=== PATIENT | female | born 1975 | race African-American/Black ===

== ENCOUNTER 2018-01-13 18:54 | Inpatient (IN) | payer SELFPAY, MEDICAID ==
[2018-01-13 20:05] LABS: ADD MAN DIFF? NO
[2018-01-13 20:08] LABS: BASO # 0.1 x10^3/uL (0.0-0.2); BASO % 1 % (0-3); EOS # 0.3 x10^3/uL (0.0-0.7); EOS % 4 % (0-3); HEMATOCRIT 37.5 % (36.0-47.0); HEMOGLOBIN 12.8 g/dL (12.0-15.5); LYMPH # 2.6 x10^3/uL (1.0-4.8); LYMPH % 27 % (24-48); MEAN CORPUSCULAR HEMOGLOBIN 31 pg (25-35); MEAN CORPUSCULAR HGB CONC 34 g/dL (31-37); MEAN CORPUSCULAR VOLUME 91 fL (79-100); MONO # 0.3 x10^3/uL (0.0-1.1); MONO % 4 % (0-9); NEUT # 6.3 x10^3uL (1.8-7.7); NEUT % 65 % (31-73); PLATELET COUNT 287 x10^3/uL (140-400); RED BLOOD COUNT 4.12 x10^6/uL (3.50-5.40); RED CELL DISTRIBUTION WIDTH 13.2 % (11.5-14.5); WHITE BLOOD COUNT 9.7 x10^3/uL (4.0-11.0)
[2018-01-13 20:16] LABS: PROTHROMBIN TIME PATIENT 12.4 SEC (11.7-14.0)
[2018-01-13] MEDS: hydrALAZINE 20 MG/ML VIAL. IVP ×2 (20:20→21:46)
[2018-01-13 20:29] LABS: ANION GAP 8 (6-14); BLOOD UREA NITROGEN 8 mg/dL (7-20); CARBON DIOXIDE 27 mmol/L (21-32); CHLORIDE 104 mmol/L (98-107); GFR 73.2; GLUCOSE 98 mg/dL (70-99); SODIUM 139 mmol/L (136-145)
[2018-01-13 20:36] LABS: ALBUMIN 3.9 g/dL (3.4-5.0); ALK PHOS 96 U/L (46-116); ALT (SGPT) 21 U/L (14-59); AST (SGOT) 16 U/L (15-37); DIRECT BILIRUBIN 0.1 mg/dL (0.0-0.2); LIPASE 196 U/L (73-393); MAGNESIUM 2.1 mg/dL (1.8-2.4); TOTAL BILIRUBIN 0.4 mg/dL (0.2-1.0); TOTAL PROTEIN 8.4 g/dL (6.4-8.2)
[2018-01-13 20:36] LABS: TROPONINI 0.017 ng/mL (0.000-0.055)
[2018-01-13 20:43] LABS: NT-PRO BNP 196 pg/mL (0-124)
[2018-01-13 20:43] LABS: CKMB MASS < 0.5 ng/mL (0.0-3.6); CREATINE KINASE 185 U/L (26-192)
[2018-01-13] MEDS: fentaNYL PF VIAL 100 MCG/2 ML VIAL IV ×2 (20:46→21:47)
[2018-01-13 21:28] LABS: BILIRUBIN,URINE NEGATIVE (NEG); COLOR,URINE YELLOW; GLUCOSE,URINE NEGATIVE (NEG); NITRITE,URINE NEGATIVE (NEG); PH,URINE 7.5; PROTEIN,URINE NEGATIVE (NEG-TRACE); UROBILINOGEN,URINE 0.2 mg/dL (0.2 mg/dL)
[2018-01-13 21:35] LABS: AMPHETAMINE/METHAMPHETAMINE NEG (NEG); BACTERIA,URINE 0 /HPF (0-FEW); BARBITURATES NEG (NEG); BENZODIAZEPINES NEG (NEG); CANNABINOIDS POS (NEG); CLARITY,URINE CLEAR; COCAINE NEG (NEG); ETHANOL, URINE NEG (NEG); METHADONE NEG (NEG); OPIATES NEG (NEG); PHENCYCLIDINE NEG (NEG); RBC,URINE OCC /HPF (0-2); SQUAMOUS EPITHELIAL CELL,UR MOD /LPF; WBC,URINE OCC /HPF (0-4)
[2018-01-13] MEDS: POTASSIUM CHLORIDE 20 MEQ TABLET.ER. PO (21:43)
[2018-01-13] MEDS: NITROGLYCERIN SUBLINGUAL 0.4 MG BOTTLE OF 25. SL (22:24)
[2018-01-13] MEDS: ASPIRIN 325 MG TABLET PO (23:45)
[2018-01-14] MEDS: ASPIRIN CHEWABLE 81 MG TABLET. PO (00:06)
[2018-01-14] MEDS: fentaNYL PF VIAL 100 MCG/2 ML VIAL IV ×7 (00:06→09:46)
[2018-01-14] MEDS: PROMETHAZINE 12.5 MG in IV NORMAL SALINE 50ML 50 ML IV ×2 (00:07→13:49)
[2018-01-14] MEDS: ZOLPIDEM 5 MG TABLET. PO ×4 (01:09→23:10)
[2018-01-14 02:25] LABS: TROPONINI 0.064 ng/mL (0.000-0.055)
[2018-01-14] MEDS ORDERED: CONTRAST GIVEN MC (04:45)
[2018-01-14] MEDS: IOHEXOL 300 MG/ML 100ML VIAL. IV (05:00)
[2018-01-14 06:01] LABS: ADD MAN DIFF? NO
[2018-01-14 06:21] LABS: BASO % 1 % (0-3); EOS # 0.1 x10^3/uL (0.0-0.7); EOS % 1 % (0-3); HEMATOCRIT 38.5 % (36.0-47.0); HEMOGLOBIN 13.2 g/dL (12.0-15.5); LYMPH # 1.8 x10^3/uL (1.0-4.8); LYMPH % 18 % (24-48); MEAN CORPUSCULAR HEMOGLOBIN 31 pg (25-35); MEAN CORPUSCULAR HGB CONC 34 g/dL (31-37); MEAN CORPUSCULAR VOLUME 91 fL (79-100); MONO # 0.2 x10^3/uL (0.0-1.1); MONO % 3 % (0-9); NEUT # 7.7 x10^3uL (1.8-7.7); NEUT % 78 % (31-73); PLATELET COUNT 273 x10^3/uL (140-400); RED BLOOD COUNT 4.24 x10^6/uL (3.50-5.40); RED CELL DISTRIBUTION WIDTH 13.3 % (11.5-14.5); WHITE BLOOD COUNT 9.9 x10^3/uL (4.0-11.0)
[2018-01-14 06:34] LABS: ANION GAP 8 (6-14); BLOOD UREA NITROGEN 8 mg/dL (7-20); CALCIUM 10.2 mg/dL (8.5-10.1); CARBON DIOXIDE 29 mmol/L (21-32); CHLORIDE 104 mmol/L (98-107); GFR 73.2; GLUCOSE 113 mg/dL (70-99); POTASSIUM 3.3 mmol/L (3.5-5.1); SODIUM 141 mmol/L (136-145)
[2018-01-14 06:57] LABS: TROPONINI 0.093 ng/mL (0.000-0.055)
[2018-01-14 08:12] LABS: POC GLUCOSE 99 mg/dL (70-99)
[2018-01-14] MEDS ORDERED: LABETALOL 20 MG/4 ML DISP.SYRIN. IVP (08:15)
[2018-01-14] MEDS: CARVEDILOL 12.5 MG TABLET. PO ×2 (08:54→17:42)
[2018-01-14] MEDS ORDERED: LIDOCAINE WITH 8.4% SOD BICARB 3 ML DISP.SYRIN. (09:07)
[2018-01-14] MEDS: amLODIPine BESYLATE 10 MG TABLET PO (09:45)
[2018-01-14] MEDS: POTASSIUM CHLORIDE 20 MEQ TABLET.ER. PO ×2 (10:00→13:00)
[2018-01-14 10:02] LABS: CHOLESTEROL 250 mg/dL (0-200); HDLC 56 mg/dL (40-60); LDLC 174 mg/dL (0-100); NON-HDL CHOLESTEROL 194 mg/dL (0-129); TRIGLYCERIDES 101 mg/dL (0-150); VLDLC 20 mg/dL (0-40)
[2018-01-14 10:06] LABS: CHOLESTEROL/HDL RATIO 4.5
[2018-01-14 10:11] LABS: THYROID STIM HORMONE (TSH) 1.877 uIU/mL (0.358-3.74)
[2018-01-14] MEDS: LORazepam 1 MG TABLET PO (10:35)
[2018-01-14] MEDS: LIDOCAINE WITH 8.4% SOD BICARB 3 ML DISP.SYRIN. INJ (10:45)
[2018-01-14] MEDS ORDERED: LORazepam 1 MG TABLET PO (11:30)
[2018-01-14] MEDS ORDERED: BUTORPHANOL 2 MG/ML VIAL. IV (11:30)
[2018-01-14] MEDS: BUTORPHANOL 2 MG/ML VIAL. IV ×3 (11:32→23:11)
[2018-01-14] MEDS: FLUoxetine HCL 20 MG CAPSULE PO (13:00)
[2018-01-14] MEDS: hydrALAZINE 20 MG/ML VIAL. IVP (13:01)
[2018-01-14] MEDS: oxyCODONE/APAP 5/325 1 TAB TABLET PO (14:43)
[2018-01-14] MEDS: SPIRONOLACTONE 25 MG TABLET PO (14:45)
[2018-01-14] MEDS: ATORVASTATIN CALCIUM 40 MG TABLET. PO (21:51)
[2018-01-15] MEDS: oxyCODONE/APAP 5/325 1 TAB TABLET PO ×2 (03:43→08:36)
[2018-01-15] MEDS: BUTORPHANOL 2 MG/ML VIAL. IV ×2 (05:26→12:08)
[2018-01-15 05:38] LABS: ADD MAN DIFF? NO
[2018-01-15 05:40] LABS: BASO # 0.1 x10^3/uL (0.0-0.2); BASO % 1 % (0-3); EOS # 0.1 x10^3/uL (0.0-0.7); EOS % 2 % (0-3); HEMATOCRIT 37.3 % (36.0-47.0); HEMOGLOBIN 12.4 g/dL (12.0-15.5); LYMPH # 2.7 x10^3/uL (1.0-4.8); LYMPH % 31 % (24-48); MEAN CORPUSCULAR HEMOGLOBIN 31 pg (25-35); MEAN CORPUSCULAR HGB CONC 33 g/dL (31-37); MEAN CORPUSCULAR VOLUME 92 fL (79-100); MONO # 0.4 x10^3/uL (0.0-1.1); MONO % 5 % (0-9); NEUT # 5.4 x10^3uL (1.8-7.7); NEUT % 62 % (31-73); PLATELET COUNT 280 x10^3/uL (140-400); RED BLOOD COUNT 4.05 x10^6/uL (3.50-5.40); RED CELL DISTRIBUTION WIDTH 13.6 % (11.5-14.5); WHITE BLOOD COUNT 8.7 x10^3/uL (4.0-11.0)
[2018-01-15 06:02] LABS: ANION GAP 8 (6-14); BLOOD UREA NITROGEN 9 mg/dL (7-20); CARBON DIOXIDE 30 mmol/L (21-32); CHLORIDE 104 mmol/L (98-107); CREATININE 1.1 mg/dL (0.6-1.0); GFR 65.6; GLUCOSE 105 mg/dL (70-99); POTASSIUM 3.1 mmol/L (3.5-5.1); SODIUM 142 mmol/L (136-145)
[2018-01-15] MEDS: FLUoxetine HCL 20 MG CAPSULE PO (08:35)
[2018-01-15] MEDS: SPIRONOLACTONE 25 MG TABLET PO (08:37)
[2018-01-15] MEDS: PROMETHAZINE 12.5 MG in IV NORMAL SALINE 50ML 50 ML IV (08:39)
[2018-01-15] MEDS: CARVEDILOL 12.5 MG TABLET. PO (08:40)
[2018-01-15] MEDS: amLODIPine BESYLATE 10 MG TABLET PO (08:43)
[2018-01-15] MEDS: POTASSIUM CHLORIDE 20 MEQ TABLET.ER. PO (12:05)
== END 2018-01-15 16:25 | disposition home or self-care (01) | DRG 287 ==
LOC: ER 18:54 → 2 NORTH 21:06
PROC: 02H633Z Insertion of Infusion Device into Right Atrium, Percutaneous Approach (ICD-10-PCS; principal; 2018-01-14)
PROC: B2141ZZ Fluoroscopy of Right Heart using Low Osmolar Contrast (ICD-10-PCS; 2018-01-14)
PROC: B244ZZZ Ultrasonography of Right Heart (ICD-10-PCS; 2018-01-14)
DX: I16.0 Hypertensive urgency (principal); E78.5 Hyperlipidemia, unspecified; E87.6 Hypokalemia; F12.90 Cannabis use, unspecified, uncomplicated; I12.9 Hypertensive chronic kidney disease with stage 1 through stage 4 chronic kidney disease, or unspecified chronic kidney disease; I25.10 Atherosclerotic heart disease of native coronary artery without angina pectoris; M06.9 Rheumatoid arthritis, unspecified; N18.9 Chronic kidney disease, unspecified; Z82.49 Family history of ischemic heart disease and other diseases of the circulatory system; Z83.3 Family history of diabetes mellitus; Z90.710 Acquired absence of both cervix and uterus; Z88.0 Allergy status to penicillin; Z88.8 Allergy status to other drugs, medicaments and biological substances; Z88.6 Allergy status to analgesic agent; Z88.1 Allergy status to other antibiotic agents; Z91.040 Latex allergy status; Z98.51 Tubal ligation status; Z90.49 Acquired absence of other specified parts of digestive tract
CPT/HCPCS: 36415; 36556; 71045; 71275; 76937; 77001; 80048; 80061; 80076; 80307; 81001; 82553; 82962; 83690; 83735; 83880; 84443; 84484; 85025; 85610; 93005; 93306; C1892; J0360; J2550; J3010; Q9967